=== PATIENT | female | born 1995 | race Two or more races ===

== ENCOUNTER → 2024-07-25 | Outpatient (CLI) | payer MEDICAID, SELFPAY ==
[2024-07-25 13:36] LABS: HCG Qualitative,Urine Negative
== END | disposition home or self-care (01) ==
LOC: SLDO 07-31 06:57
PROVIDERS: PCP Physician Assistant; Referring Provider Physician Assistant; Visit Provider Physician Assistant
DX: Z32.00 Encounter for pregnancy test, result unknown (principal)
CPT/HCPCS: 81025

== ENCOUNTER 2024-10-04 15:05 | Emergency (ER) | payer MEDICAID, SELFPAY ==
[2024-10-04 15:06] VITALS: BMI 41.5
[2024-10-04 15:17] VITALS: BP 125/83; PULSE 85; RESP 18; TEMP 36.7; O2SAT 95
--- NOTE | 2024-10-04 15:20 | XR_ITS ---
Examination: PA lateral chest 2 views Technique: Upright PA and lateral chest 2 views Standing time: September 03, 2025 1526 hrs. Indications: Coughing chest pain beginning one week ago. Findings: Reduced inspiratory effort Normal heart size Mild elevation right hemidiaphragm No pneumonia or pulmonary edema Impression: Poor inspiratory effort chest x-ray
--- NOTE | 2024-10-04 15:20 | EDNOTE_ITS ---
<Statement entered by Johana Huston MD - 10/05/24 09:15> As co-signing physician, I was present and available for consult prn. I concur with the plan and care as documented by the midlevel provider. Upper Respiratory Inf. RME/HPI General Chief Complaint: Flu Like Symptoms Stated Complaint: COUGH x 1 WEEK CAUSING CHEST PAIN Time Seen by Provider: 10/04/24 15:11 Arrival date/time: 10/04/24 15:05 28-year-old female female presents to the emergency department today with complaints of cough congestion and runny nose symptoms ongoing for last couple of days patient reports fever for last 2 days Limitations: no limitations Related Data Home Medications ?Medication ?Instructions ?Recorded ?Confirmed vitamins-iron fumarate 27 1 tab PO QDAY 02/16/19 06/22/23 mg iron-folic acid 0.8 mg tablet ( Vitamin) Previous Rx's ?Medication ?Instructions ?Recorded ferrous sulfate 325 mg (65 mg 325 mg PO BID #60 tabs 06/23/23 iron) tablet ibuprofen 800 mg tablet 800 mg PO Q6H PRN pain #90 tabs 06/23/23 ibuprofen 800 mg tablet 800 mg PO TID PRN pain #30 tabs 05/02/24 albuterol sulfate 90 mcg/actuation 2 puff inhalation Q6H PRN 10/04/24 aerosol inhaler (Ventolin HFA) shortness of breath or wheezing #8.5 grams benzonatate 100 mg capsule 100 mg PO TID #14 caps 10/04/24 ibuprofen 800 mg tablet 800 mg PO TID PRN pain #30 tabs 10/04/24 prednisone 10 mg tablet 30 mg (3 x 10 mg) PO BID 3 days 10/04/24 #18 tabs Allergies Allergy/AdvReac Type Severity Reaction Status Date / Time No Known Allergies Allergy Verified 10/04/24 15:09 Review of Systems Review of Systems Systems Reviewed: All systems reviewed, normal except as documented Constitutional Constitutional: Reports system reviewed and no additional complaints, except as documented, Denies fever(s) and Denies headache(s) Eyes Eyes: Reports system reviewed and no additional complaints, except as documented and Denies blurry vision ENT Ears, Nose, Mouth, and Throat: Reports system reviewed and no additional complaints, except as documented, Denies headache(s), Reports nasal congestion and Reports nasal discharge Cardiovascular Cardiovascular: Reports system reviewed and no additional complaints, except as documented, Denies chest pain and Denies dyspnea Respiratory Respiratory: Reports system reviewed and no additional complaints, except as documented, Reports chest congestion, Reports cough and Denies dyspnea Gastrointestinal Gastrointestinal: Reports system reviewed and no additional complaints, except as documented and Denies abdominal pain Integumentary/Breasts Skin/Breast: Reports system reviewed and no additional complaints, except as documented and Denies rash Neurologic Neurologic: Reports system reviewed and no additional complaints, except as documented, Reports as per HPI and Denies headache(s) Past Medical History Past Medical History NEUROLOGIC: Negative Neurological Disorders CARDIAC: Negative Cardiac Disorders or Congestive Heart Failure RESPIRATORY: Negative Chronic Obstructive Pulmonary Disease (COPD) GASTROINTESTINAL: Negative Gastrointestinal Disorders, Hepatitis or Colorectal Cancer GENITOURINARY: Negative Genitourinary Disorders, Renal Disease or Prostate Canc er REPRODUCTIVE: Negative Breast Cancer, Pelvic Inflammatory Disease or Testicular Cancer MUSCULOSKELETAL: Negative Musculoskeletal Disorders or Bone Cancer ENDOCRINE: Negative Endocrine Disorders, Diabetes Mellitus Type 1 or Diabetes Mellitus Type 2 HEMATOLOGIC: Negative Blood Disorders OTHER HISTORY: Positive Hospitalization (CHILDBIRTH.); Negative Autoimmune Disease, Down Syndrome, Developmental Delay, Shingles, Falls, Blood Transfusions, Blood Transfusion Reaction, Anesthesia Reactions, Organ Transplant, Chemotherapy, Radiation Therapy, Hyperbaric Therapy, MRSA, VRSA, Vancomycin-Resistant Enterococci, Human Immunodeficiency Virus (HIV), Chicken Pox, Measles, Mumps, Rubella (Vietnamese Measles), Pertussis, Clostridium Difficile, Cancer, Breast Cancer, Cervical Cancer, Colorectal Cancer, Lung Cancer, Ovarian Cancer, Prostate Cancer or Testicular Cancer Family History FAMILY HISTORY: Negative Family Psychiatric Problems, Family Respiratory Disorders, Family Cardiac Disorders, Family Gastrointestinal Problems, Family Cancer, Family Surgery or Family Anesthesia Reaction Surgical History SURGICAL: Negative Cardiac Surgery, Endocrine Surgery, Neurologic Surgery, Brain Shunt, Mastectomy, Lumpectomy, Hysterectomy, Tubal Ligation, Section or Organ Transplant Social History SMOKING STATUS: Never smoker SECOND HAND EXPOSURE: No ED Exam General Limitations: Present no limitations General appearance: Present alert and in no apparent distress Head Head exam: Present atraumatic, normocephalic and normal inspection Eye Eye exam: Present normal appearance, PERRL and EOMI; Absent conjunctival injection ENT ENT exam: Present normal exam, normal oropharynx and mucous membranes moist Neck Neck exam: Present normal inspection, full ROM and trachea midline Chest Chest inspection: Present normal inspection and symmetric chest wall rise Respiratory Respiratory exam: Present normal lung sounds bilaterally; Absent respiratory distress, wheezes, stridor or accessory muscle use Cardiovascular Cardiovascular exam: Present regular rate, normal rhythm and normal heart sounds Abdominal Exam Abdominal exam: Present soft and normal bowel sounds; Absent distention, tenderness, guarding, rebound or rigidity Extremities Exam Extremities exam: Present normal inspection and full ROM Back Exam Back exam: Present normal inspection and full ROM Neurological Exam Neurological exam: Present alert, oriented X3 and CN II-XII intact Psychiatric Psychiatric exam: Present normal affect and normal mood Skin Skin exam: Present warm, dry, intact and normal color Course Quality Measures none Orders Category Date Time Status Bedside COVID-19 Antigen Test NOW Care 10/04/24 15:20 Completed Bedside Influenza A&B Antigen Test NOW Care 10/04/24 15:20 Completed XR chest 2V Stat Exams 10/04/24 15:20 Completed Vital Signs Vital signs: Vital Signs Temperature 98.0 F 10/04/24 15:17 Pulse Rate 85 10/04/24 15:17 Respiratory Rate 18 10/04/24 15:17 Blood Pressure 125/83 10/04/24 15:17 Pulse Oximetry (%) 95 10/04/24 15:17 Oxygen Delivery Method Room Air 10/04/24 15:17 O2 saturation 100% room air within normal limits Upper Respiratory Infection MDM Narrative MDM Narrative:: 28-year-old female female presents to the emergency department today with complaints of cough congestion and runny nose symptoms ongoing for last couple of days patient reports fever for last 2 days On exam patient well-appearing patient does not appear ill or toxic patient does not appear in acute distress patient is no difficulty breathing Patient checked for flu and COVID Chest x-ray obtained chest x-ray reviewed by me Patient discharged home with steroid,, inhaler, cough medicine Patient discharged home in no distress to follow-up with primary care doctor in the next 24 to 48 hours and for any worsening symptoms to return to the ER immediately Patient data External records reviewed:: [facility] previous records Clinical information provided by:: patient Social determinants that could affect healthcare access:: none Patient has the following chronic illnesses:: none How is presenting disease/condition affected by chronic disease/condition?: no chronic disease Evaluation data The following diagnostics were reviewed and interpreted by me:: lab results and radiology exam(s) Lab and/or radiology exams considered but not ordered:: Labs radiology obtained Interpretation Summary: Reviewed by me Medications / Prescriptions Medications or Prescriptions considered but not ordered:: Given Medication administrations:: Given Consultations Consultation(s) initiated? (list below): No Diagnosis Upper Respiratory Differential Diagnosis: upper respiratory infection, sinusitis, viral infection and bronchitis Most likely diagnosis given after review of the tests above:: URI Admission Indicated Admission indicated?: not indicated Admission Request Was there a request for admission?: No Disposition Plan Disposition Plan: Discharge Discharge Attestation Discharge Attestation: The patient and all family members were given an opportunity to ask questions and understood the discharge instructions. Discharge instructions specifically effects, indications for sooner follow up or return to the emergency department, and the expected course of current diagnosis. Patient condition: Stable Discharge Plan Plan Patient Disposition: HOME (Self Care) Disposition Comment: Stable Prescriptions/Referrals Prescriptions/Med Rec: New prednisone 10 mg tablet 30 mg PO BID 3 Days Qty: 18 0RF ibuprofen 800 mg tablet 800 mg PO TID PRN (Reason: pain) Qty: 30 0RF benzonatate 100 mg capsule 100 mg PO TID Qty: 14 0RF albuterol sulfate [Ventolin HFA] 90 mcg/actuation HFA aerosol inhaler 2 puff inhalation Q6H PRN (Reason: shortness of breath or wheezing) Qty: 8.5 0RF No Action Vitamin 27 mg iron- 0.8 mg Tablet 1 tab PO QDAY ibuprofen 800 mg tablet 800 mg PO TID PRN (Reason: pain) Qty: 30 0RF ferrous sulfate 325 mg (65 mg iron) tablet 325 mg PO BID Qty: 60 1RF ibuprofen 800 mg tablet 800 mg PO Q6H PRN (Reason: pain) Qty: 90 1RF Referrals: Yareli Rob PA-C [Primary Care Provider] - 10/07/24 Problem List Clinical Impression: URI (upper respiratory infection), Cough Patient/Caregiver Discharge Instructions Education Materials: ED URI, Viral, No Abx (Adult) Additional Instructions: Please follow up with your primary care doctor in the next 24-48hrs for any worsening symptoms return here immediately Print Language: Swiss Stand Alone Forms: Nirmala Award Info., Work/School Release, Patient Portal Info Letter MAYANK/ANNE Supervising Physician PA/ANNE Supervising Physician: Dr. HUSTON
[2024-10-04 17:04] VITALS: BP 139/84; PULSE 84; RESP 18; TEMP 36.9; O2SAT 97
== END 2024-10-04 17:08 | disposition home or self-care (01) ==
PROVIDERS: Emergency Provider Emergency Medicine; PCP Physician Assistant
DX: J06.9 Acute upper respiratory infection, unspecified (principal)
CPT/HCPCS: 71046; 87400; 87811; 99283